=== PATIENT | female | born 1955 | race Caucasian/White ===

== ENCOUNTER 2016-09-05 13:24 | Emergency (ER) | payer MEDICARE, MEDICAID ==
[2016-09-05] MEDS ORDERED: DILAUDID 1 MG/ML AMP ONE ×2 (16:59→20:00)
[2016-09-05] MEDS ORDERED: ONDANSETRON 4 MG VIAL ONE ×2 (16:59→20:00)
[2016-09-05] MEDS ORDERED: SODIUM CHLORIDE 0.9% 1,000 ML ONE (17:00)
== END 2016-09-05 20:39 | disposition home or self-care (01) ==
LOC: ER 13:24
CPT/HCPCS: 36415 ×2; 74176 ×2; 80053 ×2; 81001 ×2; 82274 ×2; 83690 ×2; 84439 ×2; 84443 ×2; 85025 ×2; 87880 ×2; 96361 ×2; 96374 ×2; 96375 ×2; 96376 ×2; 99284; J1170; J2405